=== PATIENT | female | born 1970 | race Caucasian/White ===

== ENCOUNTER 2017-12-01 06:45 | Day surgery (SDC) | payer BC ==
[2017-11-30 10:06] LABS: BASOPHILS % (AUTO) 0.7 % (0.0-2.0); EOSINOPHILS # (AUTO) 0.1 K/uL (0.0-0.4); EOSINOPHILS % (AUTO) 1.3 % (0.0-4.0); HEMATOCRIT 35.7 % (36-48); HEMOGLOBIN 11.3 g/dL (12.0-16.0); LYMPHOCYTES # (AUTO) 1.7 K/uL (1.0-5.5); LYMPHOCYTES % (AUTO) 27.4 % (20.5-51.5); MEAN CORPUSCULAR HEMOGLOBIN 24 pg (27-31); MEAN CORPUSCULAR HGB CONC 32 % (32-36); MEAN CORPUSCULAR VOLUME 75 fL (79.0-98.0); MONOCYTES # (AUTO) 0.7 K/uL (0.0-1.0); MONOCYTES % (AUTO) 10.9 % (1.7-9.3); NEUTROPHILS # (AUTO) 3.7 K/uL (1.8-7.7); NEUTROPHILS % (AUTO) 59.7 % (40.0-70.0); PLATELET COUNT (AUTO) 311 K/uL (130-430); RED BLOOD CELL COUNT(AUTO) 4.79 MIL/uL (4.2-6.2); RED CELL DISTRIBUTION WIDTH 16.4 % (9.0-15.0); WHITE BLOOD COUNT (AUTO) 6.2 K/uL (4.8-10.8)
[2017-11-30 10:21] LABS: CALCIUM 9.3 mg/dL (8.4-11.0); CREATININE 0.86 mg/dL (0.55-1.30); POTASSIUM 3.8 mmol/L (3.5-5.1)
[2017-11-30 10:32] LABS: TOTAL BILIRUBIN 0.4 mg/dL (0.0-1.0)
[2017-11-30 10:33] LABS: BILIRUBIN,URINE NEGATIVE (NEGATIVE); BLOOD, URINE 1+ (NEGATIVE); CLARITY/URINE CLEAR (CLEAR); COLOR,URINE YELLOW (YELLOW); GLUCOSE,URINE NEGATIVE (NEGATIVE); KETONES,URINE NEGATIVE (NEGATIVE); LEUKOCYTE ESTERASE ,URINE NEGATIVE (NEGATIVE); NITRITE, URINE NEGATIVE (NEGATIVE); PH,URINE 5.5 (5.0-8.0); PROTEIN URINE NEGATIVE (NEGATIVE); UROBILINOGEN,URINE 0.2 (0.2-1.0)
[2017-11-30 10:58] LABS: BACTERIA,URINE FEW /HPF (None Seen); RBC,URINE 0-3 /HPF (0-3); WBC,URINE 0-3 /HPF (0-3)
[2017-11-30 10:59] LABS: MUCUS,URINE None Seen /LPF (None Seen)
[~2017-12-01] VITALS: Ht 167.6 cm; Wt 65.8 kg
[2017-12-01] MEDS ORDERED: fentaNYL CITRATE/PF 100 MCG/2 ML AMP IVP ONE (10:45)
[2017-12-01] MEDS ORDERED: SILVER NITRATE APPLICATOR 1 STICK STICK..EA. TP ONE (10:45)
[2017-12-01] MEDS ORDERED: PROPOFOL 200MG/ 20ML VIAL (DIPRIVAN) IV ONE (10:45)
[2017-12-01] MEDS ORDERED: KETOROLAC TROMETHAMINE 30 MG VIAL IVP ONE (10:45)
[2017-12-01] MEDS ORDERED: NS IRRIG SOLN 1000 ML IR ONE (10:45)
[2017-12-01] MEDS ORDERED: NS IRRIG SOLN 5000 ML IR ONE (10:45)
[2017-12-01] MEDS ORDERED: MIDAZOLAM HCL 5 MG/5 ML VIAL IVP ONE (10:45)
[2017-12-01] MEDS ORDERED: SEVOFLURANE 15 MIN GAS INH ONE (10:45)
[2017-12-01] MEDS ORDERED: DEXAMETHASONE SOD PHOSPHATE 4 MG/ML VIAL IVP ONE (10:45)
[2017-12-01] MEDS ORDERED: ROCURONIUM BROMIDE 10 MG/ML (ZEMURON) IV ONE (10:45)
[2017-12-01] MEDS ORDERED: ONDANSETRON HCL 4 MG/2 ML VIAL IVP ONE (10:45)
[2017-12-01] MEDS ORDERED: LR 1,000 ML IV SCH (11:14)
[2017-12-01] MEDS ORDERED: METOCLOPRAMIDE HCL 10 MG/2 ML VIAL IVP PRN (11:15)
[2017-12-01] MEDS ORDERED: MEPERIDINE HCL/PF 50 MG/ML AMP IVP PRN ×2 (11:15)
[2017-12-01] MEDS ORDERED: MEPERIDINE HCL/PF 25 MG/ML DISP.SYRIN IVP PRN (11:15)
[2017-12-01] MEDS ORDERED: OXYCODONE/ACETAMINOPHEN 5-325 TABLET PO PRN ×2 (11:30)
[2017-12-01] MEDS ORDERED: PROMETHAZINE HCL 25 MG/ML AMP IM PRN ×2 (11:30)
[2017-12-01] MEDS ORDERED: ONDANSETRON HCL 4 MG/2 ML VIAL IVP PRN (11:30)
[2017-12-01] MEDS ORDERED: MEPERIDINE HCL/PF 50 MG/ML AMP ONE (11:41)
[2017-12-01 12:45] VITALS: BP_SYST 109
== END 2017-12-01 13:25 | disposition home or self-care (01) ==
LOC: SDS 06:45 → SMU 06:45 → SDS 13:25
PROVIDERS: ATTEND Obstetrics & Gynecology
DX: N84.0 Polyp of corpus uteri (principal); Z79.899 Other long term (current) drug therapy; N85.01 Benign endometrial hyperplasia
CPT/HCPCS: 36415; 58558; 80053; 81000; 84702; 85025; 86886; 86900; 86901; 88305; C1819; J1100; J1885; J2175; J2250; J2405; J2704; J3010; J7120